=== PATIENT | female | born 1970 | race Caucasian/White ===

== ENCOUNTER 2018-01-28 01:23 | Emergency (ER) | payer MEDICAID ==
[~2018-01-28] VITALS: Ht 152.4 cm; Wt 55.0 kg
[~2018-01-28 01:23] MED LIST: HYDR-3972 PO; MARIJUANA
[2018-01-28] MEDS ORDERED: acetaminophen 325mg tablet PO ONE (02:45)
[2018-01-28 04:23] VITALS: BP 122/61
== END 2018-01-28 04:43 | disposition left against medical advice (07) ==
LOC: ER 01:23
DX: R51 Headache (principal); Z53.21 Procedure and treatment not carried out due to patient leaving prior to being seen by health care provider; Y04.0XXA Assault by unarmed brawl or fight, initial encounter; Y93.89 Activity, other specified; Y92.89 Other specified places as the place of occurrence of the external cause; Y99.8 Other external cause status
CPT/HCPCS: 99281